=== PATIENT | male | born 1975 | race Caucasian/White ===

== ENCOUNTER 2024-06-19 12:04 | Outpatient (CLI) | payer BC, SELFPAY ==
--- NOTE | 2024-06-19 12:06 | MR_ITS ---
WS: [id number] MRI LEFT KNEE HISTORY: DERANGEMENT OF MEDIAL MENISCUS COMPARISON: None available. Anterior cruciate ligament: Intact. Posterior cruciate ligament: Intact. Medial collateral ligament: Fluid and mild edema along the medial collateral ligament. There is fluid in the central proximal ligament consistent with a partial tear. No full-thickness tear. Posterior lateral corner structures: Intact. Medial menisci: Abnormal signal along the superior articular surface of the posterior horn extends pa rtially through the meniscus. There is no full-thickness tear. There is slight blunting of the free e dge which is suspicious for radial tear. Anterior horn is normal. Lateral meniscus: Intact. Normal signal, size and shape. Extensor mechanism: Distal quadriceps tendon and patellar tendons are intact. Fluid and soft tissue: Small suprapatellar joint effusion. Small Corrigan's cyst. Osseous and articular structures: Patellofemoral compartment: Normal. Medial compartment: Moderate narrowing of the medial compartment. There is thinning and fissuring of the cartilage. Marrow edema in the medial femoral condyle and tibial plateau. Lateral compartment: Mild narrowing of the lateral compartment. MR/MR knee LT wo con* [id number] IMPRESSION: 1. Partial tear of the medial collateral ligament. Tear is above the joint lilian e. 2. Marrow edema in the medial femoral condyle and tibial plateau with no marro w edema. 3. Moderate narrowing of the medial compartment with diffuse thinning and fiss uring of the cartilage. 4. Abnormal signal in the posterior horn of the medial meniscus does not exten d completely through the meniscus. There is slight blunting also of the free ed ge which can be seen with radial tears. 5. Normal ACL.
== END 2024-06-19 12:05 | disposition home or self-care (01) ==
LOC: RAD 12:05
PROVIDERS: PCP Family Medicine; Visit Provider Family Medicine
DX: S83.412A Sprain of medial collateral ligament of left knee, initial encounter (principal); M17.12 Unilateral primary osteoarthritis, left knee; S83.242A Other tear of medial meniscus, current injury, left knee, initial encounter; X58.XXXA Exposure to other specified factors, initial encounter
CPT/HCPCS: 73721

== ENCOUNTER → 2024-07-08 11:13 | Outpatient (BNVA) | payer BC, SELFPAY | PROVIDERS: PCP Family Medicine; Visit Provider Student in an Organized Health Care Education/Training Program | DX: S83.242A Other tear of medial meniscus, current injury, left knee, initial encounter; X58.XXXA Exposure to other specified factors, initial encounter | CPT/HCPCS: 73560; 73565 ==